=== PATIENT | male | born 1960 | race Caucasian/White ===

== ENCOUNTER → 2018-01-11 15:46 | Outpatient (CLI) | payer MEDICARE, MEDICAID, SELFPAY ==
--- NOTE | 2018-01-11 15:49 | AVDS_ITS ---
Version 2 Reason For Study: swelling, check for CVS RIGHT Inflow artery 58.9 cm/s. Prox anast 385 cm/s. Prox graft 440 cm/s. Mid graft 117 cm/s. Distasl graft 711 cm/s. Outflow 153 cm/s. Mid graft diameter 2.12 x 2.61 cm. Brachial artery in the upper arm measures 1.41 x 1.27 cm with a velocity of 269 cm/s. 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 Volume flow measurement within the fistula vary from 206cc/min all the way up to 5198 cc/min. The right brachial artery is enlarged to 1.41 x 1.27cm. The distal venous outflow at the shoulder demonstrates a marked increase in velocity at 711cm/sec consistent with high grade venous outflow stenosis. Ordering Physician: Tab Cresop Performed By: Rafael Sadler RVT
[2018-01-11 17:48] LABS: Absolute Lymphocyte Count 0.91 X10^3/ul (0.83-4.51); Absolute Neutrophil Count 3.2 X10^3/uL (2.0-7.7); Basophil# 0.02 X10^3/uL; Basophil% 0.4 % (0-1); Eosinophil# 0.05 X10^3/uL; Eosinophils% 1.1 % (0-5); Hematocrit 39.5 % (40-54); Hemoglobin 11.4 g/dl (13.0-16.5); Lymphocyte # 0.91 X10^3/ul (4.0); Lymphocyte % 19.8 % (19-41); Mean Corp Hgb Conc 28.9 g/gl (32-36); Mean Corpuscular Hgb 28.9 pg (27.0-32.0); Mean Platelet Vol. 9.7 fl (6.2-12.0); Monocyte# 0.44 X10^3/uL; Monocyte% 9.6 % (0-10); Neutrophil # 3.17 X10^3/uL (2.7-7.7); Neutrophil % 68.9 % (47-70); Platelet Count 141 K/mm3 (150-450); RBC Distribution Width CV 15.6 % (11.6-14.6); RBC Distribution Width SD 56.1 fl (35.1-43.9); Red Blood Count 3.95 M/mm3 (4.6-6.2); White Blood Count 4.6 K/mm3 (4.4-11.0)
[2018-01-11 18:07] LABS: POSITIVE COUNT NO; POSITIVE DIFFERENTIAL NO; POSITIVE MORPHOLOGY NO
== END ==
PROVIDERS: Family Provider Internal Medicine; PCP Internal Medicine; Visit Provider Surgery
DX: I87.1 Compression of vein (principal); K74.60 Unspecified cirrhosis of liver; N18.6 End stage renal disease; Z99.2 Dependence on renal dialysis
CPT/HCPCS: 36415; 85025; 93990